=== PATIENT | female | born 1990 | race Caucasian/White ===

== ENCOUNTER 2019-05-24 19:56 | Emergency (ER) | payer BC, OTHER ==
[2019-05-24] MEDS ORDERED: IBUPROFEN 600 MG TAB PO (21:30)
[2019-05-24] MEDS: IBUPROFEN 800 MG TAB PO (21:56)
== END 2019-05-24 23:39 | disposition home or self-care (01) ==
LOC: FTE 19:56
DX: S93.401A Sprain of unspecified ligament of right ankle, initial encounter (principal); X50.1XXA Overexertion from prolonged static or awkward postures, initial encounter; Y92.9 Unspecified place or not applicable
CPT/HCPCS: 29515; 73610-RT; 73630; 73630-LT; 99284-25